=== PATIENT | female | born 1990 | race Caucasian/White ===

== ENCOUNTER 2016-07-24 15:33 | Emergency (ER) | payer OTHER, BC ==
[~2016-07-24] VITALS: Ht 160 cm; Wt 107.3 kg
[2016-07-24] MEDS ORDERED: ZOFRAN ODT4 MG PO (17:37)
[2016-07-24 17:49] VITALS: BP 133/99
== END 2016-07-24 17:50 | disposition home or self-care (01) ==
LOC: EME 15:33
DX: S06.0X0A Concussion without loss of consciousness, initial encounter (principal); R51 Headache; V43.52XA Car driver injured in collision with other type car in traffic accident, initial encounter; Y92.410 Unspecified street and highway as the place of occurrence of the external cause
CPT/HCPCS: 99281; 99283